=== PATIENT | male | born 1950 | race Caucasian/White ===

== ENCOUNTER 2016-08-13 04:09 | Emergency (ER) | payer OTHER ==
[2016-08-13 05:10] LABS: ABSOLUTE BASOPHILS # (AUTO) 0.1 10^3/uL (0.0-0.2); ABSOLUTE EOSINOPHILS # (AUTO) 0.2 10^3/uL (0.0-0.6); ABSOLUTE LYMPHOCYTES (AUTO) 1.9 10^3/uL (0.5-4.7); ABSOLUTE MONOCYTES (AUTO) 0.9 10^3/uL (0.1-1.4); ABSOLUTE NEUT (AUTO) 5.8 10^3/uL (1.7-8.2); BASOPHILS % (AUTO) 0.9 % (0-2); HEMATOCRIT 45.9 % (37.9-51.0); HEMOGLOBIN 15.5 g/dL (13.5-17.0); HGB HCT DIFFERENCE 0.6; MEAN CORPUSCULAR HEMOGLOBIN 30.6 pg (27.0-33.4); MEAN CORPUSCULAR HGB CONC 33.7 g/dL (32.0-36.0); MEAN CORPUSCULAR VOLUME 91 fl (80-97); MONOCYTES % (AUTO) 9.8 % (3-13); RED BLOOD COUNT 5.05 10^6/uL (4.35-5.55); RED CELL DISTRIBUTION WIDTH 13.7 % (11.5-14.0); SEGMENTED NEUTROPHILS % (AUTO) 65.3 % (42-78); WHITE BLOOD COUNT 8.9 10^3/uL (4.0-10.5)
[2016-08-13 05:38] LABS: ALANINE AMINOTRANSFERASE 41 U/L (21-72); ALBUMIN 4.5 g/dL (3.5-5.0); ALKALINE PHOSPHATASE 82 U/L (38-126); ANION GAP 13 (5-19); ASPARTATE AMINO TRANSFERASE 38 U/L (17-59); BILIRUBIN,DIRECT 0.2 mg/dL (0.0-0.4); BILIRUBIN,TOTAL 1.1 mg/dL (0.2-1.3); BLOOD UREA NITROGEN 14 mg/dL (7-20); CALCIUM 10.3 mg/dL (8.4-10.2); CARBON DIOXIDE 26 mmol/L (22-30); CHLORIDE 107 mmol/L (98-107); CREATININE RESULT 0.73 mg/dL (0.52-1.25); GLUCOSE 97 mg/dL (75-110); POTASSIUM 4.1 mmol/L (3.6-5.0); SODIUM 146.4 mmol/L (137-145); TOTAL PROTEIN 6.9 g/dL (6.3-8.2)
[2016-08-13 05:48] LABS: ALCOHOL < 10 mg/dL (NONE DETECTED)
[2016-08-13 06:04] LABS: APPEARANCE,URINE CLEAR; BILIRUBIN,URINE NEGATIVE (NEGATIVE); GLUCOSE, URINE NEGATIVE (NEGATIVE); KETONES,URINE TRACE mg/dL (NEGATIVE); LEUKOCYTE ESTERASE,URINE NEGATIVE (NEGATIVE); NITRITE,URINE NEGATIVE (NEGATIVE); PROTEIN,URINE NEGATIVE (NEGATIVE)
[2016-08-13 06:21] LABS: URINE BARBITURATES SCREEN NEGATIVE; URINE METHADONE SCREEN NEGATIVE; URINE OPIATES LOW NEGATIVE; URINE PHENCYCLIDINE SCREEN NEGATIVE
--- NOTE | 2016-08-13 08:55 | EKG REPORT ---
SEVERITY:- ABNORMAL ECG - SINUS RHYTHM RIGHT BUNDLE BRANCH BLOCK : Confirmed by: Terrence Pepper MD 13-Aug-2016 08:54:23
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
--- NOTE | 2016-08-13 10:35 | ER Document Report ---
ED General - General Chief Complaint: Psych Problem Stated Complaint: IVC/WITH PAPERS TRAVEL OUTSIDE OF THE [place] IN LAST 30 DAYS: No - HPI Patient complains to provider of: psychiatric evaluation Notes: Patient coming in for psychiatric evaluation on IVC paper work. According to the IVC paper work patient has been making multiple threats to harm himself and drove his car and particular bridge when patient cannot be contacted family members to contact local law enforcement to discharge searching for the patient in the water. Patient was later found in a hotel room according to the IVC paper work. Upon interviewing the patient patient denies any SI or HI. Patient initially states that everything on IVC paper was applied and states he did Park his coronary bridge "for effect". Patient states he was picked up at his home by the local law enforcement. Denies history HI SI states he does have a history of depression after a divorce. - Related Data Allergies/Adverse Reactions: No Known Allergies Allergy (Unverified 08/13/16 04:24) Past Medical History - Social History Smoking Status: Never Smoker Chew tobacco use (# tins/day): No Frequency of alcohol use: None Drug Abuse: None Family History: Reviewed & Not Pertinent Patient has suicidal ideation: No Patient has homicidal ideation: No Renal/ Medical History: Denies: Hx Peritoneal Dialysis Review of Systems - Review of Systems Constitutional: No symptoms reported EENT: No symptoms reported Cardiovascular: No symptoms reported Respiratory: No symptoms reported Gastrointestinal: No symptoms reported Genitourinary: No symptoms reported Male Genitourinary: No symptoms reported Musculoskeletal: No symptoms reported Skin: No symptoms reported Hematologic/Lymphatic: No symptoms reported Neurological/Psychological: Suicidal ideation -: Yes All other systems reviewed and negative Physical Exam - Vital signs Vitals: Temp Pulse Resp BP Pulse Ox 97.8 F 76 18 146/88 H 97 08/13/16 04:17 08/13/16 04:17 08/13/16 04:17 08/13/16 04:17 08/13/16 04:17 Interpretation: Normal - General General appearance: Appears well, Alert - HEENT Head: Normocephalic, Atraumatic Eyes: Normal Pupils: PERRL - Respiratory Respiratory status: No respiratory distress Chest status: Nontender Breath sounds: Normal Chest palpation: Normal - Cardiovascular Rhythm: Regular Heart sounds: Normal auscultation Murmur: No - Abdominal Inspection: Normal Distension: No distension Bowel sounds: Normal Tenderness: Nontender Organomegaly: No organomegaly - Back Back: Normal, Nontender - Extremities General upper extremity: Normal inspection, Nontender, Normal color, Normal ROM , Normal temperature General lower extremity: Normal inspection, Nontender, Normal color, Normal ROM , Normal temperature, Normal weight bearing. No: Niko's sign - Neurological Neuro grossly intact: Yes Cognition: Normal Orientation: AAOx4 [place] Coma Scale Eye Opening: Spontaneous [place] Coma Scale Verbal: Oriented [place] Coma Scale Motor: Obeys Commands Comfort Coma Scale Total: 15 Speech: Normal Motor strength normal: LUE, RUE, LLE, RLE Sensory: Normal - Psychological Associated symptoms: Normal affect, Normal mood - Skin Skin Temperature: Warm Skin Moisture: Dry Skin Color: Normal Course - Re-evaluation Re-evalutation: 08/13/16 14:43 Patient's lab work shows no critical etiology. Patient was a value with a right mental health team recommended discharge home. Patient's IVC paper was rescinded. Patient will be discharged - Vital Signs Vital signs: Temp Pulse Resp BP Pulse Ox 97.6 F 63 20 131/88 H 97 08/13/16 06:17 08/13/16 10:40 08/13/16 10:40 08/13/16 10:40 08/13/16 10:40 - Laboratory Result Diagrams: 08/13/16 04:55 08/13/16 04:55 Laboratory results interpreted by me: 08/13/16 08/13/16 04:55 04:55 Sodium 146.4 H Calcium 10.3 H Urine Ketones TRACE H Urine Urobilinogen 2.0 H Salicylates < 1.0 L Acetaminophen < 10 L Discharge - Discharge Clinical Impression: Counseling for parent-child problem, Parent/child conflict Condition: Good Disposition: HOME, SELF-CARE Instructions: Normal Exam and Workup (OM) Additional Instructions: Please follow-up with your primary care physician. Forms: Return to Work
[2016-08-13 10:41] VITALS: BP 131/88
== END 2016-08-13 10:41 | disposition home or self-care (01) ==
LOC: ER 04:09
DX: R45.851 Suicidal ideations (principal); Z62.820 Parent-biological child conflict
CPT/HCPCS: 36415; 80053; 80307; 81001; 85025; 93005; 93010; 99284